=== PATIENT | male | born 1975 | race Caucasian/White ===

== ENCOUNTER 2024-04-18 11:06 | Outpatient (OUT) | payer BC, SELFPAY ==
[2024-04-18 11:41] LABS: Basophils Percent Auto 0.6 % (0.2-2.0); Eosinophils Absolute Auto 0.1 10^3/uL (0.0-0.7); Eosinophils Percent Auto 2.8 % (0.9-7.0); Hematocrit 44.3 % (42.0-54.0); Hemoglobin 15.2 g/dL (14.0-18.0); Immature Granulocytes Abs Auto 0.01 10^3/uL (0.00-0.03); Immature Granulocytes Pct Auto 0.2 % (0.0-0.5); Lymphocytes Absolute Auto 2.2 10^3/uL (1.2-3.8); Lymphocytes Percent Auto 44.2 % (20.5-60.0); Mean Corpuscular HGB Conc 34.3 g/dL (29.9-35.2); Mean Corpuscular Hemoglobin 29.3 pg (25.9-34.0); Mean Corpuscular Volume 85.4 fL (80.0-94.0); Mean Platelet Volume 11.4 fL (9.5-13.5); Monocytes Absolute Auto 0.4 10^3/uL (0.3-0.8); Monocytes Percent Auto 7.9 % (1.7-12.0); Neutrophils Absolute Auto 2.3 10^3/uL (1.4-6.5); Neutrophils Percent Auto 44.3 % (43.0-75.0); Platelet Count 235 10^3/uL (150-450); Red Blood Count 5.19 10^6/uL (4.70-6.10); Red Cell Distribution Width 13.4 % (11.0-15.0); White Blood Count 5.1 10^3/uL (4.0-11.0)
[2024-04-18 11:55] LABS: Estimated Average Glucose 114 mg/dL; Glycohemoglobin A1C 5.6 % (4.5-6.2)
[2024-04-18 12:56] LABS: Alanine Aminotransferase 109 U/L (16-63); Albumin Globulin Ratio 0.9; Albumin Level 3.7 g/dL (3.4-5.0); Alkaline Phosphatase 77 U/L (46-116); Anion Gap 11.6; Aspartate Amino Transferase 67 U/L (15-37); BUN Creatinine Ratio 11.9; Bilirubin Total 0.7 mg/dL (0.2-1.0); Calcium 9.3 mg/dL (8.5-10.1); Carbon Dioxide 26.7 mmol/L (21.0-32.0); Chloride 100 mmol/L (98-107); Chol HDL Ratio 5.9; Cholesterol 182 mg/dL (<=200); Estimated GFR (African America >60 (>=60); Estimated GFR (Non-African Ame >60 (>=60); Free T3 3.03 pg/mL (2.18-3.98); Globulin 4.1 g/dL; Glucose 110 mg/dL (74-106); HDL Cholesterol 31 mg/dL (40-60); Potassium 4.3 mmol/L (3.5-5.1); Sodium 134 mmol/L (136-145); Total Protein 7.8 g/dL (6.4-8.2); Triglycerides 312 mg/dL (<=150); VLDL CHOLESTEROL 62.4 mg/dL
[2024-04-18 13:08] LABS: Prostate Specific Antigen Scrn 0.66 ng/mL (<=4.00)
[2024-04-20 14:09] LABS: Insulin 32.1 uIU/mL (2.6-24.9)
== END 2024-04-18 11:07 | disposition home or self-care (01) ==
LOC: LAB 11:08
PROVIDERS: PCP Family Medicine; Visit Provider Family Medicine
DX: Z00.00 Encounter for general adult medical examination without abnormal findings (principal)
CPT/HCPCS: 36415; 80053; 80061; 83036; 83525; 84436; 84443; 84481; 85025; G0103

== ENCOUNTER 2024-04-20 19:55 | Outpatient (OUT) | payer BC, SELFPAY ==
--- OUTSIDE RECORDS SUMMARY | 2024-04-20 19:58 | XMS_ITS | CCD ---
Author Organization [facility] Care Team Providers Care Crew Foreman Name Role Phone ALEK, DR STEWART Consulting Unavailable HOY, DR STEWART Primary Care Unavailable HOY, DR STEWART Admitting Unavailable HOY, DR STEWART Attending Unavailable HOY, DR STEWART Primary Care Unavailable HOY, DR STEWART Admitting Unavailable HOY, DR STEWART Attending Unavailable HOY, DR STEWART Primary Care Unavailable HOY, DR STEWART Admitting Unavailable HOY, DR STEWART Attending Unavailable HOY, DR STEWART Attending Unavailable HOY, DR STEWART Primary Care Unavailable HOY, DR STEWART Admitting Unavailable HOY, DR STEWART Consulting Unavailable HOY, DR STEWART Primary Care Unavailable MISC, DOCTOR Admitting Unavailable MISC, DOCTOR Attending Unavailable Problems Active Problems Problem Classification Problem Date Documented Da te Episodic/Chronic Residual codes; unclassified (4 sources) Obstructive sleep apnea (adult) (pediatric); Translations: [OBSTRUCTIVE SLEEP APNEA] Onset: 12-14-2020 Chronic Past or Other Problems Problem Classification Problem Date Documented Da te Episodic/Chronic Cardiac dysrhythmias (4 sources) Palpitations; Translations: [PALPITATIONS] Onset: 12-12-2020 Episodic Results Test Name Value Interpretation Reference Range Facil ity CBC AUTO DIFFon 12-12-2020 BASO # 0.0 103/ul Normal 0.0-0.1 [facility] Comment on above: Performed By: #### C BC #### [facility] [address] [place], [place] [address] Marisol Mcintyre Basophils/100 WBC (Bld) 0.6 % Normal 0.2-2.0 [facility] Comment on above: Performed By: #### C BC #### [facility] [address] [place], [place] [address] Marisol Mcintyre EO # 0.2 103/ul Normal 0.0-0.7 [facility] Comment on above: Performed By: #### C BC #### [facility] [address] [place], [place] [id number] Marisol Miguelina Eosinophils/100 WBC (Bld) 3.4 % Normal 0.9-7.0 [facility] Comment on above: Performed By: #### C BC #### [facility] [address] [place] [address] Marisol Miguelina Erythrocyte distribution width (RBC) [Ratio] 12.9 % Normal 11.0-15.0 [facility] Comment on above: Performed By: #### C BC #### [facility] [address] [place] [address] Marisol Miguelina Hematocrit (Bld) [Volume fraction] 40.0 % Critically low 42.0-54.0 [facility] Comment on above: Performed By: #### C BC #### [facility] [address] [place] [address] Mairsol Miguelina Hemoglobin (Bld) [Mass/Vol] 13.7 g/dL Critically low 14.0-18.0 [facility] Comment on above: Performed By: #### C BC #### [facility] [address] [place] [address] Marisol Miguelina IG # 0.01 10e3/ul Normal 0.00-0.03 [facility] Comment on above: Performed By: #### C BC #### [facility] [address] [place] [address] Marisol Miguelina IG % 0.2 % Normal 0.0-0.5 [facility] Comment on above: Performed By: #### C BC #### [facility] [address] [place] [address] Marisol Miguelina LYMPH # 2.7 103/ul Normal 1.2-3.8 [facility] Comment on above: Performed By: #### C BC #### [facility] [address] [place] [address] Marisol Miguelian Lymphocytes/100 WBC (Bld) 42.7 % Normal 20.5-60.0 [facility] Comment on above: Performed By: #### C BC #### [facility] [address] [place], [place] [id number] Marisol Miguelina MANUAL DIFF REQ NO Normal [facility] Comment on above: Performed By: #### C BC #### [facility] [address] [place], [place] [id number] Marisol Miguelian MCH (RBC) [Entitic mass] 29.9 pg Normal 25.9-34.0 [facility] Comment on above: Performed By: #### C BC #### [facility] [address] [place] [address] Marisolnicki Mcintyre MCHC (RBC) [Mass/Vol] 34.3 g/dL Normal 29.9-35.2 [facility] Comment on above: Performed By: #### C BC #### [facility] [address] [place] [address] Marisol Miguelina MCV (RBC) [Entitic vol] 87.3 fL Normal 80.0-94.0 [facility] Comment on above: Performed By: #### C BC #### [facility] [address] [place] [address] Marisol Miguelina MONO # 0.4 103/ul Normal 0.3-0.8 [facility] Comment on above: Performed By: #### C BC #### [facility] [address] [place] [address] Marisol Miguelina Monocytes/100 WBC (Bld) 5.6 % Normal 1.7-12.0 [facility] Comment on above: Performed By: #### C BC #### [facility] [address] [place] [address] Marisol Miguelina NEUT # 3.0 103/ul Normal 1.4-6.5 [facility] Comment on above: Performed By: #### C BC #### [facility] [address] [place], [place] [id number] Marisol Miguelina Neutrophils/100 WBC (Bld) 47.5 % Normal 43.0-75.0 [facility] Comment on above: Performed By: #### C BC #### [facility] [address] [place], [place] [id number] Marisol Mcintyre Platelet mean volume (Bld) [Entitic vol] 10.9 fL Normal 9.5-13.5 [facility] Comment on above: Performed By: #### C BC #### [facility] [address] [place], [place] [address] Marisol Mcintyre PLT 230 103/ul Normal 150-450 [facility] Comment on above: Performed By: #### C BC #### [facility] [address] [place] [id number] Marisol Mcintyre RBC 4.58 106/ul Critically low 4.70-6.10 [facility] Comment on above: Performed By: #### C BC #### [facility] [address] [place] [id number] Marisol Mcintyre WBC 6.4 103/ul Normal 4.0-11.0 [facility] Comment on above: Performed By: #### C BC #### [facility] [address] [place], [place] [id number] Marisol Mcintyre DIRECT LDLon 12-12-2020 Cholesterol in LDL [Mass/Vol] 96 mg/dL Normal [facility] Comment on above: Performed By: #### T SH, T7, CMP, DLDL, LIPID, MG #### [facility] [address] [place], [place] [address] Marisol Mcintyre DLDL NORMAL SEE BELOW Normal [facility] Comment on above: Result Comment: <100 mg/dl OPTIMAL 100 - 129 mg/dl NEAR OR ABOVE OPTIMAL 130 - 159 mg/dl BORDERLINE HIGH 160 - 189 mg/dl HIGH >190 mg/dl VERY HIGH Performed By: #### T SH, T7, CMP, DLDL, LIPID, MG #### [facility] [address] [place] [id number] Marisol Mcintyre FREE THYROXINE INDEX T7on FTI 2.24 Normal [facility] Comment on above: Performed By: #### T SH, T7, CMP, DLDL, LIPID, MG #### [facility] [address] [place] [address] Marisol Mcintyre T3U 35.0 % Normal 23.5-40.5 [facility] Comment on above: Performed By: #### T SH, T7, CMP, DLDL, LIPID, MG #### [facility] [address] [place] [id number] Marisol Miguelina T4 [Mass/Vol] 6.40 ug/dL Normal 5.53-11.00 [facility] Comment on above: Performed By: #### T SH, T7, CMP, DLDL, LIPID, MG #### [facility] [address] [place] [id number] Marisol Miguelina GLYCOHEMOGLOBIN A1Con 2020 ADA RECOMMENDATION ADA THERAPEUTIC TARGET 6.0 - 7.0 ACTION SUGGESTED > 7.[address] [facility] Comment on above: Performed By: #### A 1C #### [facility] [address] [place] [address] Marisol Miguelina Glucose [Mass/Vol] 103 mg/dL Normal [facility] Comment on above: Performed By: #### A 1C #### [facility] [address] [place] [address] Marisol Miguelina HbA1c (Bld) [Mass fraction] 5.2 % Normal <=6.0 [facility] Comment on above: Performed By: #### A 1C #### [facility] [address] [place], [place] [id number] Marisol Miguelina LIPID PROFILEon 12-12-2020 CHOL-HDL RATIO NORM SEE BELOW Normal [facility] Comment on above: Result Comment: 3.3 - 4.4 LOW RISK 4.4 - 7.1 AVERAGE RISK 7.1 - 11.0 MODERATE RISK >11.0 HIGH RISK Performed By: #### T SH, T7, CMP, DLDL, LIPID, MG #### [facility] [address] [place] [address] Marisol Miguelina Cholesterol [Mass/Vol] 210 mg/dL Critically high <=200 [facility] Comment on above: Performed By: #### T SH, T7, CMP, DLDL, LIPID, MG #### [facility] [address] [place] [id number] Marisol Miguelina Cholesterol in HDL [Mass/Vol] 31 mg/dL Normal [facility] Comment on above: Performed By: #### T SH, T7, CMP, DLDL, LIPID, MG #### [facility] [address] [place] [id number] Marisol Mcintyre Cholesterol.total/Cho lesterol in HDL [Mass ratio] 6.8 {ratio} Normal [facility] Comment on above: Performed By: #### T SH, T7, CMP, DLDL, LIPID, MG #### [facility] [address] [place] [address] Marisol Miguelina HDL NORMAL > or = 60 mg/dl - LOW CARDIOVASCULAR RISK <40 mg/dl - HIGH CARDIOVASCULAR RISK Normal [facility] Comment on above: Performed By: #### T SH, T7, CMP, DLDL, LIPID, MG #### [facility] [address] [place] [address] Marisolnicki Mcintyre LDL CALC NORMAL SEE BELOW Normal [facility] Comment on above: Result Comment: <100 mg/dl OPTIMAL 100 - 129 mg/dl NEAR OR ABOVE OPTIMAL 130 - 159 mg/dl BORDERLINE HIGH 160 - 189 mg/dl HIGH >190 mg/dl VERY HIGH Performed By: #### T SH, T7, CMP, DLDL, LIPID, MG #### [facility] [address] [place] [address] Marisol Mcintyre Triglyceride [Mass/Vol] 562 mg/dL Critically high <=150 [facility] Comment on above: Performed By: #### T SH, T7, CMP, DLDL, LIPID, MG #### [facility] [address] [place] [id number] Marisol Masten MAGNESIUMon 12-12-2020 Magnesium [Mass/Vol] 2.1 mg/dL Normal 1.6-2.3 [facility] Comment on above: Performed By: #### T SH, T7, CMP, DLDL, LIPID, MG #### [facility] [address] [place] [address] Marisol Mcintyre PROF 14(COMP METB)on 021 Albumin [Mass/Vol] 3.8 g/dL Normal 3.5-5.0 [facility] Comment on above: Performed By: #### T SH, T7, CMP, DLDL, LIPID, MG #### [facility] [address] [place] [address] Marisol Miguelina Albumin/Globulin [Mass ratio] 0.9 {ratio} Normal [facility] Comment on above: Performed By: #### T SH, T7, CMP, DLDL, LIPID, MG #### [facility] [address] [place] [address] Marisol Miguelina ALP [Catalytic activity/Vol] 51 U/L Normal 38-126 [facility] Comment on above: Performed By: #### T SH, T7, CMP, DLDL, LIPID, MG #### [facility] [address] [place] [address] Marisol Miguelina ALT [Catalytic activity/Vol] 45 U/L Normal 21-72 [facility] Comment on above: Performed By: #### T SH, T7, CMP, DLDL, LIPID, MG #### [facility] [address] [place] [address] Marisol Miguelina Anion gap [Moles/Vol] 9.0 mmol/L Normal [facility] Comment on above: Performed By: #### T SH, T7, CMP, DLDL, LIPID, MG #### [facility] [address] [place] [address] Marisol Miguelina AST [Catalytic activity/Vol] 23 U/L Normal 17-59 [facility] Comment on above: Performed By: #### T SH, T7, CMP, DLDL, LIPID, MG #### [facility] [address] [place] [address] Marisol Miguelina Bilirubin [Mass/Vol] 0.5 mg/dL Normal 0.2-1.3 [facility] Comment on above: Performed By: #### T SH, T7, CMP, DLDL, LIPID, MG #### [facility] [address] [place] [address] Marisol Miguelina Calcium [Mass/Vol] 8.9 mg/dL Normal 8.4-10.2 [facility] Comment on above: Performed By: #### T SH, T7, CMP, DLDL, LIPID, MG #### [facility] [address] [place] [address] Marisol Miguelina Chloride [Moles/Vol] 102 mmol/L Normal 98-107 [facility] Comment on above: Performed By: #### T SH, T7, CMP, DLDL, LIPID, MG #### [facility] [address] [place] [address] Marisol Miguelina CO2 [Moles/Vol] 29.1 mmol/L Normal 22.0-30.0 [facility] Comment on above: Performed By: #### T SH, T7, CMP, DLDL, LIPID, MG #### [facility] [address] [place] [address] Marisol Miguelina Creatinine [Mass/Vol] 0.92 mg/dL Normal 0.66-1.25 [facility] Comment on above: Performed By: #### T SH, T7, CMP, DLDL, LIPID, MG #### [facility] [address] [place] [address] Marisol Miguelina EGFR-AF CITIZEN [place] >60 Normal >=60 [facility] Comment on above: Performed By: #### T SH, T7, CMP, DLDL, LIPID, MG #### [facility] [address] [place] [address] Marisol Miguelina EGFR-NON AF CITIZEN OF [place] >60 Normal >=60 [facility] Comment on above: Performed By: #### T SH, T7, CMP, DLDL, LIPID, MG #### [facility] [address] [place] [address] Marisol Miguelina Globulin (S) [Mass/Vol] 4.0 g/dL Normal [facility] Comment on above: Performed By: #### T SH, T7, CMP, DLDL, LIPID, MG #### [facility] [address] [place] [address] Marisol Miguelina Glucose [Mass/Vol] 100 mg/dL Normal 74-106 [facility] Comment on above: Performed By: #### T SH, T7, CMP, DLDL, LIPID, MG #### [facility] [address] [place] [address] Marisol Miguelina Potassium [Moles/Vol] 4.1 mmol/L Normal 3.4-5.0 [facility] Comment on above: Performed By: #### T SH, T7, CMP, DLDL, LIPID, MG #### [facility] [address] [place] [address] Marisol Miguelina Protein [Mass/Vol] 7.8 g/dL Normal 6.1-8.2 [facility] Comment on above: Performed By: #### T SH, T7, CMP, DLDL, LIPID, MG #### [facility] [address] [place] [address] Marisol Miguelina Sodium [Moles/Vol] 136 mmol/L Critically low 137-145 [facility] Comment on above: Performed By: #### T SH, T7, CMP, DLDL, LIPID, MG #### [facility] [address] [place] [address] Marisol Miguelina Urea nitrogen [Mass/Vol] 16.0 mg/dL Normal 9.0-20.0 [facility] Comment on above: Performed By: #### T SH, T7, CMP, DLDL, LIPID, MG #### [facility] [address] [place] [address] Marisol Miguelina Urea nitrogen/Creatinine [Mass ratio] 17.4 mg/mg Normal [facility] Comment on above: Performed By: #### T SH, T7, CMP, DLDL, LIPID, MG #### [facility] [address] [place] [address] Marisol Miguelina TSHon 12-12-2020 TSH 2.394 uIU/mL Normal 0.470-4.680 [facility] Comment on above: Performed By: #### T SH, T7, CMP, DLDL, LIPID, MG #### [facility] [address] [place] [address] Marisol Miguelina TSH RANGE SEE BELOW Normal [facility] Comment on above: Result Comment: <0.3 4 UIU/ml HYPERTHYROID 0.34-5.60 UIU/ml EUTHYROID >5.60 UIU/ml HYPOTHYROID Performed By: #### T SH, T7, CMP, DLDL, LIPID, MG #### [facility] [address] [place], [place] [address] Marisol Mcintyre Encounters Encounter Date Encounter Type Care Provider Facility Start: 12-22-[address] TERRY GASTON Facility :[facility] Start: 12-21-[address] TERRY GASTON Facility :[facility] Start: 12-14-2020 End: 12-15-[address] TERRY GASTON Facility:[facility] Start: 12-12-2020 End: 12-13-[address] TERRY GASTON Facility:[facility] Payers Date Payer Category Payer Unknown [id number] 2.16.84 [id number] 1975 Unknown [id number] [id number] [id number] 1975 Unknown [id number] 2.16.84 [id number] 1975 Unknown [id number] 2.16.84 [id number] 1975 Unknown [id number] 2.16.84 [id number] 1959 Self-pay [id number] 1959 Unknown [id number] Summary Purpose Family History No Family History Records Found Advance Directives No Advanced Directives Records Found Additional Source Comments (unrecognized sect ion and content) No Status Records Found INFORMATION SOURCE (unrecogn ized section and content) DATE CREATED AUTHOR 05/17/2021 [facility] FOR RECORDS PERTAINING TO PATIENTS WHO ARE OR HAVE BEEN ENROLLED IN A CHEMICAL DEPENDENCY/SUBSTANCEABUSE PROGRAM, SOME INFORMATION MAY BE OMITTED. This clinical summary was aggregated from multiple sources. Caution should be exercised in using it in the provision of clinical care. This summary normalizes information from multiple sources, and as a consequence, information in this document may materially change the coding, format and clinical context of patient data. In addition, data may be omitted in some cases. CLINICAL DECISIONS SHOULD BE BASED ON THE PRIMARY CLINICAL RECORDS. [facility] [facility]. provides no warranty or guarantee of the accuracy or completeness of information in this document.
== END 2024-04-20 19:56 | disposition home or self-care (01) ==
LOC: SLEEP 19:55
PROVIDERS: PCP Family Medicine; Visit Provider Family Medicine
DX: G47.33 Obstructive sleep apnea (adult) (pediatric) (principal)
CPT/HCPCS: 95810

== ENCOUNTER 2025-07-20 14:11 | Emergency (ER) | payer OTHER, SELFPAY ==
[2025-07-20 14:19] VITALS: BP 152/87; PULSE 76; TEMP 36.7; O2SAT 99; BMI 40.7
--- NOTE | 2025-07-20 15:24 | US_ITS ---
[address] [address] Patient Name: PAULETTE RUEDA MRN: [id number] date: 1975 Sex: M Assigned Patient Location: ER Current Patient Location: ER Accession/Order Number: [id number] Exam Date: 07/20/2025 15:26 Report Date: 07/20/2025 16:30 At the request of: SULTANA COLINDRES MD Procedure: US scrotum doppler EXAMINATION TYPE: US scrotum doppler grayscale, color Doppler, waveform duplex analysis was performed. DATE OF EXAM ORDERED: 07/20/2025 3:50 PM HISTORY: Atraumatic pain, left scrotal pain for one hour COMPARISON: NONE TECHNIQUE: Realtime imaging of the scrotum was performed. Parsons scale, color Doppler and spectral Doppler imaging of the testicles was performed. FINDINGS: Testicles: Both testicles demonstrate homogeneous echotexture without intratesticular filling defect. There is slight increased vascularity along the left testicle suspicious for orchitis. Right measurements: 4.7 x 2.2 x 3.4 cm Left measurements: 5.1 x 2.5 x 3.3 cm Epididymis: The bilateral epididymides demonstrate normal echogenicity without focal lesion. Right measurements: 1.0 cm Left measurements: 1.1 cm Hydrocele: There is a small left-sided hydrocele. Doppler ultrasound of the testicles: Arterial and venous waveforms are seen within both testicles. No sonographic evidence of testicular ischemia. Prominent vessels are noted adjacent to the left testicle within the scrotum suspicious for varicocele. US/US scrotum doppler IMPRESSION: 1. The testicles are normal in size and echogenicity. No intratesticular lesions. 2. No sonographic evidence of testicular ischemia. 3. There is slight increased vascularity along the left testicle suspicious for orchitis. 4. Prominent vessels are noted adjacent to the left testicle within the scrotum suspicious for varicocele. 5. There is a small left-sided hydrocele. Impression dictated by: Jose Maria Cavanaugh M.D. 07/20/2025 4:30 PM Dictation Location: [place] [address] Electronically authenticated by: [id number] Y Date: 07/20/2025 16:30
--- NOTE | 2025-07-20 17:30 | ED_ITS ---
HPI HPI - General Adult General Chief complaint: Urogenital-Male Stated complaint: LEFT TESTICLE PAIN Time Seen by Provider: 07/20/25 15:24 Source: patient Mode of arrival: walk-in History of Present Illness HPI narrative: 50-year-old male presents for left testicular pain. It started at work but there was no injury or unusual activity. The pain is only on the left side and has been continuous. He has never had pain like this before. He has no concern for an STD. Related Data Previous Rx's ?Medication ?Instructions ?Recorded ciprofloxacin HCl 500 mg tablet 500 mg PO Q12H #20 tab s 07/20/25 (Cipro) Allergies Allergy/AdvReac Type Severity Reaction Status Date / Time No Known Drug Allergies Allergy Verified 07/20/25 14:23 Review of Systems ROS Narrative A ten point review of systems is negative except as noted above. PFSH PFSH Social History Little interest or pleasure in doing things: not at all Feeling down, depressed, or hopeless: not at all Exam Narrative Exam Narrative: Nurses note and vital signs reviewed General:The patient appears well and in no apparent distress.Patient is resting comfortably on cart. Skin:Warm, dry, no pallor noted.There is no rash noted. Head:Normocephalic, atraumatic Eye: Normal conjunctiva, no drainage Ears, Nose, Mouth, and Throat: oral mucosa is moist. Nares patent. Cardiovascular:Regular Rate and Rhythm Respiratory:Patient is in no distress, no accessory muscle use Back:non-tender : He has mild left hemiscrotal swelling and mild tenderness. No skin erythema or skin lesions. GI: Soft and nontender Musculoskeletal: No joint swelling Neurological:A&O, normal speech Psychiatric:Cooperative Constitutional Vital Signs, click to edit/add: Last Vital Signs Temp 98.1 F 07/20/25 14:19 Pulse 76 07/20/25 14:19 Resp 18 07/20/25 14:19 BP 152/87 H 07/20/25 14:19 Pulse Ox 99 07/20/25 14:19 O2 Del Method Room Air 07/20/25 14:19 Course Vital Signs Vital signs: Vital Signs Temperature 98.1 F 07/20/25 14:19 Pulse Rate 76 07/20/25 14:19 Respiratory Rate 18 07/20/25 14:19 Blood Pressure 152/87 H 07/20/25 14:19 Pulse Oximetry 99 07/20/25 14:19 Oxygen Delivery Method Room Air 07/20/25 14:19 Temperature 98.1 F 07/20/25 14:19 Pulse Rate 76 07/20/25 14:19 Respiratory Rate 18 07/20/25 14:19 Blood Pressure 152/87 H 07/20/25 14:19 Pulse Oximetry 99 07/20/25 14:19 Oxygen Delivery Method Room Air 07/20/25 14:19 Medical Decision Making MDM Narrative Medical decision making narrative: Ultrasound is consistent with orchitis and he is prescribed Cipro. Treatment diagnosis and follow-up were discussed with the patient. Imaging Data Scrotal ultrasound: Radiologist's impression: ITS Impressions Scrotum Ultrasound 07/20/25 15:24 IMPRESSION: 1. The testicles are normal in size and echogenicity. No intratesticular lesions. 2. No sonographic evidence of testicular ischemia. 3. There is slight increased vascularity along the left testicle suspicious for orchitis. 4. Prominent vessels are noted adjacent to the left testicle within the scrotum suspicious for varicocele. 5. There is a small left-sided hydrocele. Impression dictated by: Jose Maria Cavanaugh M.D. 07/20/2025 4:30 PM Dictation Location: [place] [address] Electronically authenticated by: [id number] Y Date: 07/20/2025 16:30 Discharge Plan Discharge Chief Complaint: Urogenital-Male Clinical Impression: Orchitis Patient Disposition: Home, Self-Care Time of Disposition Decision: 17:29 Condition: Good Mode of Transportation: Private Vehicle Prescriptions / Home Meds: New ciprofloxacin HCl [Cipro] 500 mg tablet 500 mg PO Q12H Qty: 20 0RF Print Language: Chinese Instructions: Orchitis (ED) Referrals: Sly Rosas MD [Primary Care Provider, Family Practice] - 1 week
[2025-07-20 17:32] VITALS: BP 110/76; PULSE 64; O2SAT 99
[2025-07-20] MEDS: CIPROFLOXACIN HCL 500 MG TABLET PO (17:34)
--- OUTSIDE RECORDS SUMMARY | 2025-07-20 17:39 | XMS_ITS | Clinical Summary ---
Author Organization [facility] Address [id number] [address] [place] [address] Care Team Providers Care First Assistant Manager Name Role Phone No Pcp, No Pcp Primary Care Provider Unavailabl e Social History Tobacco UseTypesPacks/DayYears UsedDateSmoking Tobacco: Never AssessedChildcare AnswerDate VceyotefCxyyokacuEtbpjlf02/12/2019EmploymentAnswerDate Recorded BlwyhoqsliMchmizz69/12/2019Sex and Gender InformationValueDate RecordedSex Assigned at BirthNot on fileLegal CdyLoco1902/24/2015 11:45 AM EDTGender Identity Not on fileSexual OrientationNot on file Plan of Treatment Health MaintenanceDue DateLast DoneCommentsDepression Uwfxyfhpj79/20/1987Tobacco Dphvhrerm18/20/1987Adult BMI Suoxdjqnh84/20/1993DTaP,Tdap and Td Vaccines (1 - Tdap)1994Zoster (Shingles) Vaccine (1 of 2)2025Influenza Vaccine Medical Devices Not on file Insurance * Guarantor: Tim Prado LAccount TypeRelation to PatientDate of BirthPhone Billing AddressPersonal/WtrwupChto1975 [phone] [address] Care Teams Team MemberRelationshipSpecialtyStart DateEnd Date No Pcp, [place] [address] [facility] - [facility]oi[facility]17
--- OUTSIDE RECORDS SUMMARY | 2025-07-20 17:39 | XMS_ITS | Patient Health Record ---
Author Organization [facility] in [place] Address [address] [place] [address] Care Team Providers Care Booker Name Role Phone Ramon Rosas Primary Care Provider Allergies No Known Allergies Results Component Value Reference Range Notes US scrotum doppler Reviewed date:07/20/2025 04:37:41 PM Interpretation: Performing Lab: Notes/Report: Source Facility: [place] [address] Ultrasound Report Signed Patient: TELLO RUEDA Jr. MR#: [id number] : 1975 Acct:[id number] Age/Sex: 50 / M ADM Date: Loc: ER Attending Dr: Ordering Physician: Sultana Colindres M.D. Date of Service: 07/20/25 Procedure(s): US scrotum doppler Accession Number(s): [id number] cc: Sly Rosas M.D.; Sultana Colindres M.D. [facility] [place] [address] Patient Name: TELLO RUEDA MRN: [id number] date: 1975 Sex: M Assigned Patient Location: ER Current Patient Location: ER Accession/Order Number: [id number] Exam Date: 07/20/2025 15:26 Report Date: 07/20/2025 16:30 At the request of: SULTANA COLINDRES MD Procedure: US scrotum doppler EXAMINATION TYPE: US scrotum doppler grayscale, color Doppler, waveform duplex analysis was performed. DATE OF EXAM ORDERED: 07/20/2025 3:50 PM HISTORY: Atraumatic pain, left scrotal pain for one hour COMPARISON: NONE TECHNIQUE: Realtime imaging of the scrotum was performed. Parsons scale, color Doppler and spectral Doppler imaging of the testicles was performed. FINDINGS: Testicles: Both testicles demonstrate homogeneous echotexture without intratesticular filling defect. There is slight increased vascularity along the left testicle suspicious for orchitis. Right measurements: 4.7 x 2.2 x 3.4 cm Left measurements: 5.1 x 2.5 x 3.3 cm Epididymis: The bilateral epididymides demonstrate normal echogenicity without focal lesion. Right measurements: 1.0 cm Left measurements: 1.1 cm Hydrocele: There is a small left-sided hydrocele. Doppler ultrasound of the testicles: Arterial and venous waveforms are seen within both testicles. No sonographic evidence of testicular ischemia. Prominent vessels are noted adjacent to the left testicle within the scrotum suspicious for varicocele. US/US scrotum doppler IMPRESSION: 1. The testicles are normal in size and echogenicity. No intratesticular lesions. 2. No sonographic evidence of testicular ischemia. 3. There is slight increased vascularity along the left testicle suspicious for orchitis. 4. Prominent vessels are noted adjacent to the left testicle within the scrotum suspicious for varicocele. 5. There is a small left-sided hydrocele. Impression dictated by: Jose Maria Cavanaugh M.D. 07/20/2025 4:30 PM Dictation Location: [place] [address] Electronically authenticated by: [id number] Y Date: 07/20/2025 16:30 Dictated By: Jose Maria Cavanaugh M.D. Signed By: 07/20/25 1632 DD/ 29 TD/TT: [employer] Salesperson: Reason For Referral No Information Medications Medication SIG (Take, Route, Frequency, Duration) Notes Start Date End Date Status Diclofenac Sodium 75 MG 1 tablet as need ed Orally Twice a day; Duration: 30 days 03/16/2024ctive Social History Tobacco Use: Social History Observation Description Date Details (start date - stop date) Never Smoker NA - NA Tobacco Control (Standard) Question Answer Notes Tobacco use: Nonsmoker AUDIT-C (Standard) Question Answer Notes Did you have a drink containing alcohol in the p ast year? No Xycgol4JqwidoorqbbjusEajiivry Problems Problem Type SNOMED Code ICD Code Onset Dates Problem Status W/U Status Risk Notes Problem Adult health examination (026888873) Well adult health check (Z00.00) ActiveconfirmedProblemInternal derangement of knee (34774786)Internal derangement of knee (M23.90)Activeconfirmed Plan Of Treatment Pending Test Test Name Order Date CMP (COMPLETE METABOLIC PANEL) 4 HEMOGLOBIN A1C (GLYCO) 03/16/2024 INSULIN, TOTAL 03/16/2024 LIPID PANEL (CHOL/TRIG/HDL/LDL) 03/16/20 24 CBC WITH DIFF (EXP 05/2025) 03/16/2024 ACUTE HEPATITIS PANEL 04/19/2024 CMP - Comprehensive Metabolic Panel 03/23 PSA, TOTAL 03/16/2024 STOOL OCCULT BLOOD 03/16/2024 PTT 04/19/2024 THYROID PANEL (T4/TSH/FREE T3) 4 PROTIME-INR 04/19/2024 Insurance Providers Payer Name Payer Address Payer Phone Subscriber Number Group Number Insured Name Patient Relationship to Insured Coverage Start Date Coverage End Date [employer] PPO PLUS LOCAL PLAN [address] [place] [phone] [id number] Tello Rueda Self - patient is the insured 4
--- OUTSIDE RECORDS SUMMARY | 2025-07-20 17:40 | XMS_ITS | CCD ---
Author Organization [facility] Care Team Providers Care Acquisition Editor Name Role Phone ALEK, DR STEWART Consulting [...] HOY, DR STEWART Primary Care Unavailable MISC, DR REYNA Admitting Unavailable MISC, DOCTOR Attending Unavailable Problems Active Problems Problem ClassificationProblemDateDocumented DateEpisodic/ChronicResidual codes; unclassified (4 sources)Obstructive sleep apnea (adult) (pediatric); Translations: [OBSTRUCTIVE SLEEP APNEA]Onset: 10-09-3945Lwrenzr Past or Other Problems Problem ClassificationProblemDateDocumented DateEpisodic/ChronicCardiac dysrhythmias (4 sources)Palpitations; Translations: [PALPITATIONS]Onset: 72-45-5664Jymyfwrb Results Test NameValueInterpretationReference RangeFacilityCBC AUTO DIFFon 12-12-2020 BASO #0.0 103/ulNormal0.0-0.1The [facility] CenterComment on above:Performed By: #### CBC #### [facility] [address], [place] [address] Marisol KarenBasophils/100 WBC (Bld)0.6 %Normal0.2-2.0The [facility] Comment on above:Performed By: #### CBC #### [facility] [address] [place] [address] Marisol KarenEO #0.2 103/ulNormal0.0-0.7The [facility] CenterComment on above: Performed By: #### CBC #### [facility] [address] [place] [address] Marisol KarenEosinophils/100 WBC (Bld)3.4 %Normal0.9-7.0The [facility] Comment on above:Performed By: #### CBC #### [facility] [address] [place] [address] Marisol KarenErythrocyte distribution width (RBC) [Ratio]12.9 %Gvmhvz39.0-15.0The [facility] CenterComment on above:Performed By: #### CBC #### [facility] [address] [place] [address] Marisol KarenHematocrit (Bld) [Volume fraction]40.0 %Critically low42.0-54.0The [facility] CenterComment on above:Performed By: #### CBC #### [facility] [address] [place] [address] Marisol KarenHemoglobin (Bld) [Mass/Vol]13.7 g/dLCritically low14.0-18.0The [facility] CenterComment on above:Performed By: #### CBC #### [facility] [address] [place] [address] Marisol KarenIG #0.01 10e3/ulNormal0.00-0.03The [facility] CenterComment on above:Performed By: #### CBC #### [facility] [address] [place] [address] Marisol KarenIG %0.2 %Normal0.0-0.5The [facility] CenterComment on above: Performed By: #### CBC #### [facility] [address] [place] [address] Marisol KarenLYMPH #2.7 103/ulNormal1.2-3.8The [facility] CenterComment on above: Performed By: #### CBC #### [facility] [address] [place] [address] Marisol KarenLymphocytes/100 WBC (Bld)42.7 %Paovul62.5-60.0The [facility] Comment on above:Performed By: #### CBC #### [facility] [address] [place] [address] Marisol KarenMANUAL DIFF REQNONormalThe [facility] CenterComment on above: Performed By: #### CBC #### [facility] [address] [place] [address] Marisol KarenMCH (RBC) [Entitic mass]29.9 xnGxmbhf01.9-34.0The [facility] Comment on above:Performed By: #### CBC #### [facility] [address] [place] [address] Marisol KarenMCHC (RBC) [Mass/Vol]34.3 g/iNJuftjy99.9-35.2[facility] Comment on above:Performed By: #### CBC #### [facility] [address] [place] [address] Marisol KarenMCV (RBC) [Entitic vol]87.3 qNMfptsm65.0-94.0The [facility] Comment on above:Performed By: #### CBC #### [facility] [address] [place] [address] Marisol KarenMONO #0.4 103/ulNormal0.3-0.8The [facility] CenterComment on above: Performed By: #### CBC #### [facility] [address] [place] [address] Marisol KarenMonocytes/100 WBC (Bld)5.6 %Normal1.7-12.0[facility] Comment on above:Performed By: #### CBC #### [facility] [address] [place] [address] Marisol KarenNEUT #3.0 103/ulNormal1.4-6.5The [facility] CenterComment on above: Performed By: #### CBC #### [facility] [address] [place] [address] Marisol KarenNeutrophils/100 WBC (Bld)47.5 %Vefqxi06.0-75.0The [facility] Comment on above:Performed By: #### CBC #### [facility] [address] [place] [address] Marisol McintyrePlatelet mean volume (Bld) [Entitic vol]10.9 fLNormal9.5-13.5The [facility] CenterComment on above:Performed By: #### CBC #### [facility] [address] [place] [address] Marisol MastIjbcpRWF821 103/bhQcdkeq678-247Gin [facility] CenterComment on above: Performed By: #### CBC #### [facility] [address] [place] [address] Marisol KarenRBC4.58 106/ulCritically low4.70-6.10The [facility] CenterComment on above:Performed By: #### CBC #### [facility] [address] [place] [address] Marisol MastenWBC6.4 103/ulNormal4.0-11.0The [facility] CenterComment on above: Performed By: #### CBC #### [facility] [address] [place] [address] Marisol KarenDIRECT LDLon 60-35-3689Yvxnrrykdtv in LDL [Mass/Vol]96 mg/dLNormal [place] [facility] SystemComment on above:Performed By: #### TSH, T7, CMP, DLDL, LIPID, MG #### [facility] [address] [place] [address] Marisol KarenDLDL NORMALSEE BELOWNormalThTrinity Health SystemComment on above: Result Comment: <100 mg/dl OPTIMAL 100 - 129 mg/dl NEAR OR ABOVE OPTIMAL 130 - 159 mg/dl BORDERLINE HIGH 160 - 189 mg/dl HIGH >190 mg/dl VERY HIGHPerformed By: #### TSH, T7, CMP, DLDL, LIPID, MG #### [facility] [address] [place] [address] Marisol KarenFREE THYROXINE INDEX T7on 02-23-0490EEB8.24NoParkview Health Bryan HospitalComment on above:Performed By: #### TSH, T7, CMP, DLDL, LIPID, MG #### [facility] [address] [place] [address] Marisol TbjtzB5R61.0 %Qgaiyy93.5-40.5The [facility] CenterComment on above: Performed By: #### TSH, T7, CMP, DLDL, LIPID, MG #### [facility] [address] [place] [address] Marisol KarenT4 [Mass/Vol]6.40 ug/dLNormal5.53-11.00The [facility] CenterComment on above:Performed By: #### TSH, T7, CMP, DLDL, LIPID, MG #### [facility] [address] [place] [address] Marisol KarenGLYCOHEMOGLOBIN A1Con 02-01-3067JFE RECOMMENDATIONADA THERAPEUTIC TARGET 6.0 - 7.0 ACTION SUGGESTED > 7.0NormLakeHealth Beachwood Medical CenterComment on above:Performed By: #### A1C #### [facility] [address] [place] [address] Marisol KarenGlucose [Mass/Vol]103 mg/dLNoParkview Health Bryan HospitalComment on above:Performed By: #### A1C #### [facility] [address] [place] [address] Marisol SstboXvF5m (Bld) [Mass fraction]5.2 %Normal<=6.0[facility] Comment on above:Performed By: #### A1C #### [facility] [address] [place] [address] Marisol KarenLIPID PROFILEon 23-99-6396IQMZ-HDL RATIO NORMSEE BELOWUniversity Hospitals Portage Medical CenterComment on above:Result Comment: 3.3 - 4.4 LOW RISK 4.4 - 7.1 AVERAGE RISK 7.1 - 11.0 MODERATE RISK >11.0 HIGH RISKPerformed By: #### TSH, T7, CMP, DLDL, LIPID, MG #### [facility] [address] [place] [address] Marisol KarenCholesterol [Mass/Vol]210 mg/dLCritically high<=200[facility] on above:Performed By: #### TSH, T7, CMP, DLDL, LIPID, MG #### [facility] [address] [place] [address] Marisol KarenCholesterol in HDL [Mass/Vol]31 mg/dLUniversity Hospitals Portage Medical Center Comment on above:Performed By: #### TSH, T7, CMP, DLDL, LIPID, MG #### [facility] [address] [place] [address] Marisol KarenCholesterol.total/Cholesterol in HDL [Mass ratio]6.8 {ratio}Normal The [facility] CenterComment on above:Performed By: #### TSH, T7, CMP, DLDL, LIPID, MG #### [facility] [address] [place] [address] Marisol KarenHDL NORMAL> or = 60 mg/dl - LOW CARDIOVASCULAR RISK <40 mg/dl - HIGH CARDIOVASCULAR RISKUniversity Hospitals Portage Medical CenterComment on above:Performed By: #### TSH, T7, CMP, DLDL, LIPID, MG #### [facility] [address] [place] [address] Marisol KarenLDL CALC NORMALSEE BELOWUniversity Hospitals Portage Medical CenterCombronson south haven hospital on above: Result Comment: <100 mg/dl OPTIMAL 100 - 129 mg/dl NEAR OR ABOVE OPTIMAL 130 - 159 mg/dl BORDERLINE HIGH 160 - 189 mg/dl HIGH >190 mg/dl VERY HIGHPerformed By: #### TSH, T7, CMP, DLDL, LIPID, MG #### [facility] [address] [place] [address] Marisol KarenTriglyceride [Mass/Vol]562 mg/dLCritically high<=150[facility] on above:Performed By: #### TSH, T7, CMP, DLDL, LIPID, MG #### [facility] [address] [place] [address] Marisol KarenMAGNESIUMon 59-51-7420Qhvuzdoui [Mass/Vol]2.1 mg/dLNormal1.6-2.3The [facility] CenterComment on above:Performed By: #### TSH, T7, CMP, DLDL, LIPID, MG #### [facility] [address] [place] [address] Marisol KarenPROF 14(COMP METB)on 22-72-8653Lyzntpb [Mass/Vol]3.8 g/dLNormal 3.5-5.0The [facility] CenterComment on above:Performed By: #### TSH, T7, CMP, DLDL, LIPID, MG #### [facility] [address] [place] [address] Marisol KarenAlbumin/Globulin [Mass ratio]0.9 {ratio}NormalThe [facility] Comment on above:Performed By: #### TSH, T7, CMP, DLDL, LIPID, MG #### [facility] [address] [place] [address] Marisol KarenALP [Catalytic activity/Vol]51 U/QDmkqwf37-571Gzb [facility] Comment on above:Performed By: #### TSH, T7, CMP, DLDL, LIPID, MG #### [facility] [address] [place] [address] Marisol KarenALT [Catalytic activity/Vol]45 U/ZLaihqg73-71Ipl [facility] Comment on above:Performed By: #### TSH, T7, CMP, DLDL, LIPID, MG #### [facility] [address] [place] [address] Marisol KarenAnion gap [Moles/Vol]9.0 mmol/LNormalThe [facility] CenterComment on above:Performed By: #### TSH, T7, CMP, DLDL, LIPID, MG #### [facility] [address] [place] [address] Marisol KarenAST [Catalytic activity/Vol]23 U/WGwahjb39-90OeyOhio State Health System Comment on above:Performed By: #### TSH, T7, CMP, DLDL, LIPID, MG #### [facility] [address] [place] [address] Marisol KarenBilirubin [Mass/Vol]0.5 mg/dLNormal0.2-1.3[facility] Comment on above:Performed By: #### TSH, T7, CMP, DLDL, LIPID, MG #### [facility] [address] [place] [address] Marisol KarenCalcium [Mass/Vol]8.9 mg/dLNormal8.4-10.2[facility] Comment on above:Performed By: #### TSH, T7, CMP, DLDL, LIPID, MG #### [facility] [address] [place] [address] Marisol KarenChloride [Moles/Vol]102 mmol/PMmxmni00-558SayOhio State Health System Comment on above:Performed By: #### TSH, T7, CMP, DLDL, LIPID, MG #### [facility] [address] [place] [address] Marisol KarenCO2 [Moles/Vol]29.1 mmol/RMxlyol16.0-30.0[facility] Comment on above:Performed By: #### TSH, T7, CMP, DLDL, LIPID, MG #### [facility] [address] [place] [address] Marisol KarenCreatinine [Mass/Vol]0.92 mg/dLNormal0.66-1.25The [facility] Comment on above:Performed By: #### TSH, T7, CMP, DLDL, LIPID, MG #### [facility] [address] [place] [address] Marisol KarenEGFR-AF IVORIAN>60Normal>=60The [facility] CenterComment on above: Performed By: #### TSH, T7, CMP, DLDL, LIPID, MG #### [facility] [address] [place] [address] Marisol KarenEGFR-NON AF IVORIAN>60Normal>=60The [facility] CenterComment on above:Performed By: #### TSH, T7, CMP, DLDL, LIPID, MG #### [facility] [address] [place] [address] Marisol KarenGlobulin (S) [Mass/Vol]4.0 g/dLNormalThe [facility] HospitalComment on above:Performed By: #### TSH, T7, CMP, DLDL, LIPID, MG #### [facility] [address] [address] Marisol KarenGlucose [Mass/Vol]100 mg/zTZtkxpa00-686Mhz [facility] on above:Performed By: #### TSH, T7, CMP, DLDL, LIPID, MG #### [facility] [address] [place] [address] Marisol KarenPotassium [Moles/Vol]4.1 mmol/LNormal3.4-5.0The [facility] Comment on above:Performed By: #### TSH, T7, CMP, DLDL, LIPID, MG #### [facility] [address] [place] [address] Marisol KarenProtein [Mass/Vol]7.8 g/dLNormal6.1-8.2The [facility] on above:Performed By: #### TSH, T7, CMP, DLDL, LIPID, MG #### [facility] [address] [place] [address] Marisol KarenSodium [Moles/Vol]136 mmol/LCritically ouc459-711Mzh [facility] on above:Performed By: #### TSH, T7, CMP, DLDL, LIPID, MG #### [facility] [address] [place] [address] Marisol KarenUrea nitrogen [Mass/Vol]16.0 mg/dLNormal9.0-20.0The [facility] on above:Performed By: #### TSH, T7, CMP, DLDL, LIPID, MG #### [facility] [address] [place] [address] Marisol KarenUrea nitrogen/Creatinine [Mass ratio]17.4 mg/mgNoTrumbull Regional Medical Center on above:Performed By: #### TSH, T7, CMP, DLDL, LIPID, MG #### [facility] [address] [place] [address] Marisol KarenTSHon 67-67-7556CPB3.394 uIU/mLNormal0.470-4.680The [facility] CenterComment on above:Performed By: #### TSH, T7, CMP, DLDL, LIPID, MG #### [facility] [address], [place] [address] Marisol HECK [facility] HospitalComment on above:Result Comment: <0.34 UIU/ml HYPERTHYROID 0.34-5.60 UIU/ml EUTHYROID >5.60 UIU/ml HYPOTHYROIDPerformed By: #### TSH, T7, CMP, DLDL, LIPID, MG #### [facility] [address], [place] [address] Marisol Mcintyre Encounters Encounter DateEncounter TypeCare ProviderFacilityStart: 19-86-4793cqzedtiibtDP TERRY HOYFacility:N8Ekxnu: 51-17-1003sydbgziontCY TERRY HOYFacility:J3Ehedg: 12-14-2020 End: 92-88-1528hipjoldadzRL TERRY HOYFacility:S8Spsdd: 12-12-2020 End: 98-80-0667gztawcyrddKY TERRY HOYFacility:H1 Payers DatePayer CategoryPayerPolicy [id number] Summary Purpose Family History No Family History Records Found Advance Directives No Advanced Directives Records Found Additional Source Comments (unrecognized sect ion and content) No Status Records Found INFORMATION SOURCE (unrecogn ized section and content) DATE CREATED AUTHOR 05/17/2021 [facility] FOR RECORDS PERTAINING TO PATIENTS WHO ARE [...] BE BASED ON THE PRIMARY CLINICAL RECORDS. [facility] [employer] [facility]. provides no warranty or guarantee of the accuracy or completeness of information in this document.
== END 2025-07-20 17:45 | disposition home or self-care (01) ==
PROVIDERS: Emergency Provider Emergency Medicine; PCP Family Medicine
DX: N45.2 Orchitis (principal)
CPT/HCPCS: 76870; 81001; 93976; 99284